=== PATIENT | male | born 1980 | race Hispanic/Latino ===

== ENCOUNTER 2019-03-02 18:55 | Emergency (ER) | payer OTHER ==
[2019-03-02 19:21] LABS: Absolute Lymphocytes (CBC) 3.1 K/uL (0.7-4.9); Basophils % 0.4 % (0-1.3); Hematocrit 44.4 % (39.6-49.0); Lymphocytes % 31.3 % (15.3-44.8); MPV 9.9 fL (7.6-11.3); RBC Red Blood Cell Count 5.18 M/uL (4.33-5.43)
[2019-03-02 19:25] LABS: Protime INR 1.15
--- NOTE | 2019-03-02 19:46 | ER ---
Nurse's Notes [facility] Name: Valerio Jeffers III Age: 38 yrs Sex: Male : 1980 Arrival Date: 03/02/2019 Time: 18:59 Bed 5 Private MD: Diagnosis: Epilepsy and recurrent seizures Presentation: 03/02 18:59 Presenting complaint: Was standing by car and fell to the ground, witness seizure with hb jerking movements and foaming at the mouth that lasted approx 5-7 minutes. Hx of seizures, does not take any medicines. BP 137/79, HR 130-160, SPO2 99% on NRB, BGL 131, 18g left AC. Transition of care: patient was not received from another setting of care. Onset of symptoms was March 02, 2019. Risk Assessment: Do you want to hurt yourself or someone else? Patient reports no desire to harm self or others. 18:59 Method Of Arrival: EMS: [facility] hb 18:59 Acuity: DARCI 3 hb 19:49 Initial Sepsis Screen: Does the patient meet any 2 criteria? No. Patient's initial ak1 sepsis screen is negative. Does the patient have a suspected source of infection? No. Patient's initial sepsis screen is negative. Care prior to arrival: None. Triage Assessment: 19:49 General: Appears in no apparent distress. ak1 19:49 General: Behavior is cooperative. ak1 Historical: - Allergies: 19:02 No Known Allergies; sv - PMHx: 19:02 Seizures; sv - PSHx: 19:02 None; sv - Immunization history:: Adult Immunizations unknown. - Social history:: Smoking status: unknown. - Ebola Screening: : No symptoms or risks identified at this time. Screenin:41 Abuse screen: Denies threats or abuse. Denies injuries from another. Nutritional ak1 screening: No deficits noted. Tuberculosis screening: No symptoms or risk factors identified. Fall Risk None identified. Assessment: 19:41 General: Appears in no apparent distress. Behavior is calm, cooperative. Pain: Denies ak1 pain. Neuro: Level of Consciousness is awake, alert, obeys commands, Oriented to person, place, time, situation, Appropriate for age pt A\T\OX4 requesting to go home, provider notified. . Neuro: Radiologic Technology Instructor are equal bilaterally Moves all extremities. Speech is normal, Facial symmetry appears normal. Cardiovascular: No deficits noted. Respiratory: No deficits noted. GI: No signs and/or symptoms were reported involving the gastrointestinal system. : No signs and/or symptoms were reported regarding the genitourinary system. EENT: No signs and/or symptoms were reported regarding the EENT system. Derm: No signs and/or symptoms reported regarding the dermatologic system. Musculoskeletal: No signs and/or symptoms reported regarding the musculoskeletal system. 19:48 Reassessment: Patient appears in no apparent distress at this time. pt able to stand ak1 and ambulate prior to discharge. Vital Signs: 19:01 BP 138 / 78; Pulse 125; Resp 24; Temp 97.4; Pulse Ox 99% on R/A; Weight 77.11 kg; hb Height 5 ft. 10 in. (177.80 cm); Pain 0/10; 19:02 BP 109 / 75; Pulse 119; Resp 18; Pulse Ox 95% ; sv 19:41 BP 100 / 73; Pulse 94; Resp 14; Pulse Ox 96% on R/A; ak1 19:01 Body Mass Index 24.39 (77.11 kg, 177.80 cm) hb [place] Coma Score: 19:49 Eye Response: spontaneous(4). Verbal Response: oriented(5). Motor Response: obeys ak1 commands(6). Total: 15. ED Course: 18:59 Patient arrived in ED. hb 19:00 Initial lab(s) drawn, by me, sent to lab. Maintain EMS IV. Dressing intact. Good blood sv return noted. Site clean \T\ dry. Gauge \T\ site: 18G L AC. 19:01 Triage completed. hb 19:01 Roland Greer NP is PHCP. pm1 19:01 Omar Vizcaino MD is Attending Physician. pm1 19:01 Arm band placed on. hb 19:29 Eileen Larose is Primary Nurse. cc3 19:41 No provider procedures requiring assistance completed. ak1 19:41 Patient has correct armband on for positive identification. ak1 19:48 IV discontinued, intact, bleeding controlled, No redness/swelling at site. Pressure ak1 dressing applied. 19:48 Seizure precautions initiated. ak1 Administered Medications: No medications were administered Point of Care Testing: Blood Glucose: 19:00 Blood Glucose: 140 mg/dL; sv Ranges: Outcome: 19:44 Discharge ordered by MD. pm1 19:49 Discharged to home ambulatory, pt stated he was going to call a cab to take him back ak1 home. 19:49 Condition: improved 19:49 Discharge instructions given to patient, Instructed on discharge instructions, follow up and referral plans. Demonstrated understanding of instructions, follow-up care. 19:50 Patient left the ED. cc3 Signatures: Remedios Duckworth RN RN Barb Acevedo RN RN ak1 Roland Greer, HOSTEL PARENT HOSTEL PARENT pm1 Christiane Up RN RN Eileen Larose cc3
--- NOTE | 2019-03-02 19:46 | EDPHYS ---
Physician Documentation [facility] Name: Valerio Jeffers III Age: 38 yrs Sex: Male : 1980 Arrival Date: 03/02/2019 Time: 18:59 Bed 5 Private MD: ED Physician Oamr Vizcaino HPI: 03/02 19:35 This 38 yrs old Male presents to ER via EMS with complaints of Seizure. pm1 19:35 The patient presents after having a possible seizure episode. pm1 19:35 The patient presents after having a single isolated seizure, that lasted 5 minute(s), pm1 the episode(s) was witnessed, by a friend. Character of seizure(s): Motor activity: generalized, shaking all over, Incontinence: none, Apnea: the patient did not experience apnea, Circulation: the patient did not experience evidence of pulse disturbance. Seizure onset: just prior to arrival. Seizure Hx: Cause: drug use in the past, Seizure medications: none. Associated injury: The patient did not suffer any apparent associated injury. EMS care: none. Current symptoms: confusion. The patient has experienced similar episodes in the past, several times. The patient has not recently seen a physician. Historical: - Allergies: 19:02 No Known Allergies; sv - PMHx: 19:02 Seizures; sv - PSHx: 19:02 None; sv - Immunization history:: Adult Immunizations unknown. - Social history:: Smoking status: unknown. - Ebola Screening: : No symptoms or risks identified at this time. ROS: 19:35 Constitutional: Negative for fever, chills, and weight loss, Eyes: Negative for injury, pm1 pain, redness, and discharge, ENT: Negative for injury, pain, and discharge, Neck: Negative for injury, pain, and swelling, Cardiovascular: Negative for chest pain, palpitations, and edema, Respiratory: Negative for shortness of breath, cough, wheezing, and pleuritic chest pain, Abdomen/GI: Negative for abdominal pain, nausea, vomiting, diarrhea, and constipation, Back: Negative for injury and pain, : Negative for injury, bleeding, discharge, and swelling, MS/Extremity: Negative for injury and deformity, Skin: Negative for injury, rash, and discoloration. 19:35 Neuro: Positive for seizure activity. Exam: 19:35 Constitutional: This is a well developed, well nourished patient who is awake, alert, pm1 and in no acute distress. Head/Face: Normocephalic, atraumatic. Eyes: Pupils equal round and reactive to light, extra-ocular motions intact. Lids and lashes normal. Conjunctiva and sclera are non-icteric and not injected. Cornea within normal limits. Periorbital areas with no swelling, redness, or edema. ENT: Nares patent. No nasal discharge, no septal abnormalities noted. Tympanic membranes are normal and external auditory canals are clear. Oropharynx with no redness, swelling, or masses, exudates, or evidence of obstruction, uvula midline. Mucous membranes moist. Neck: Trachea midline, no thyromegaly or masses palpated, and no cervical lymphadenopathy. Supple, full range of motion without nuchal rigidity, or vertebral point tenderness. No Meningismus. Chest/axilla: Normal chest wall appearance and motion. Nontender with no deformity. No lesions are appreciated. Cardiovascular: Regular rate and rhythm with a normal S1 and S2. No gallops, murmurs, or rubs. Normal PMI, no JVD. No pulse deficits. Respiratory: Lungs have equal breath sounds bilaterally, clear to auscultation and percussion. No rales, rhonchi or wheezes noted. No increased work of breathing, no retractions or nasal flaring. Abdomen/GI: Soft, non-tender, with normal bowel sounds. No distension or tympany. No guarding or rebound. No evidence of tenderness throughout. Back: No spinal tenderness. No costovertebral tenderness. Full range of motion. Skin: Warm, dry with normal turgor. Normal color with no rashes, no lesions, and no evidence of cellulitis. MS/ Extremity: Pulses equal, no cyanosis. Neurovascular intact. Full, normal range of motion. 19:35 Neuro: Orientation: to person, Motor: is normal, moves all fours. Vital Signs: 19:01 BP 138 / 78; Pulse 125; Resp 24; Temp 97.4; Pulse Ox 99% on R/A; Weight 77.11 kg; hb Height 5 ft. 10 in. (177.80 cm); Pain 0/10; 19:02 BP 109 / 75; Pulse 119; Resp 18; Pulse Ox 95% ; sv 19:41 BP 100 / 73; Pulse 94; Resp 14; Pulse Ox 96% on R/A; ak1 19:01 Body Mass Index 24.39 (77.11 kg, 177.80 cm) hb [place] Coma Score: 19:49 Eye Response: spontaneous(4). Verbal Response: oriented(5). Motor Response: obeys ak1 commands(6). Total: 15. MDM: 19:03 Patient medically screened. pm1 19:40 Refusal of service: The patient/guardian displays adequate decision making capability pm1 and despite a detailed discussion of alternatives, benefits, risks, and consequences refuses: CT Scan, all lab tests, Patient does not want a work up for his seizures. History of seizures. History of drug abuse. Patient just wants a ride home. 19:49 Data reviewed: vital signs. Data interpreted: Pulse oximetry: on room air is 96 %. pm1 Interpretation: normal. 03/02 19:00 Order name: Acetaminophen 03/02 19:00 Order name: Basic Metabolic Panel sv 03/02 19:00 Order name: CBC with Diff; Complete Time: 19:48 sv 03/02 19:00 Order name: ETOH Level; Complete Time: 19:37 sv 03/02 19:00 Order name: Hepatic Function sv 03/02 19:00 Order name: PT-INR; Complete Time: 19:48 sv 03/02 19:00 Order name: Ptt, Activated; Complete Time: 19:48 sv 03/02 19:00 Order name: Salicylate; Complete Time: 19:49 sv 03/02 19:00 Order name: EKG; Complete Time: 19:01 sv 03/02 19:00 Order name: EKG - Nurse/Tech; Complete Time: 19:20 sv 03/02 19:00 Order name: IV Saline Lock; Complete Time: 19:20 sv 03/02 19:00 Order name: Labs collected and sent; Complete Time: 19:20 sv Administered Medications: No medications were administered Point of Care Testing: Blood Glucose: 19:00 Blood Glucose: 140 mg/dL; sv Ranges: Critical Glucose Levels:Adult <50 mg/dl or >400 mg/dl <40 mg/dl or >180 mg/dl Disposition: 03/02/19 19:44 Discharged to Home. Impression: Epilepsy and recurrent seizures. - Condition is Stable. - Discharge Instructions: Seizure, Adult, [id number]. - Medication Reconciliation Form, Thank You Letter, Antibiotic Education, Prescription Opioid Use form. - Follow up: Emergency Department; When: As needed; Reason: Worsening of condition. Follow up: Private Physician; When: 2 - 3 days; Reason: Recheck today's complaints, Continuance of care, Re-evaluation by your physician. - Problem is new. - Symptoms have improved. Addendum: 03/05/2019 09:06 Co-signature as Attending Physician, Omar Vizcaino MD I agree with the assessment and k dr plan of care. Signatures: Dispatcher [employer] EDPR Remedios Duckworth, RN RN Omar Dickson MD MD [facility] [address] Barb Acevedo RN RN ak1 Roland Greer, NATHAN ATTENDING PSYCHIATRIST pm1 Eileen Larose cc3 Corrections: (The following items were deleted from the chart) 03/02 19:45 19:25 Head Brain Wo Cont+CT.RAD.BRZ ordered. [facility] 19:50 19:44 03/02/2019 19:44 Discharged to Home. Impression: Epilepsy and recurrent seizures. cc3 Condition is Stable. Forms are Medication Reconciliation Form, Thank You Letter, Antibiotic Education, Prescription Opioid Use. Follow up: Emergency Department; When: As needed; Reason: Worsening of condition. Follow up: Private Physician; When: 2 - 3 days; Reason: Recheck today's complaints, Continuance of care, Re-evaluation by your physician. Problem is new. Symptoms have improved. pm1
[2019-03-02 19:49] LABS: ALT/SGPT 46 U/L (12-78); AST/SGOT 22 U/L (15-37); Albumin 4.1 g/dL (3.4-5.0); Alkaline Phosphatase 86 U/L (45-117); BUN Blood Urea Nitrogen 15 mg/dL (7-18); Bicarbonate 26 mmol/L (21-32); Bilirubin Direct 0.2 mg/dL (0-0.2); Bilirubin Total 0.9 mg/dL (0.2-1.0); Glucose Level 138 mg/dL (74-106); Potassium 3.2 mmol/L (3.5-5.1); Sodium Level 139 mmol/L (136-145)
[2019-03-02 21:29] VITALS: TEMP 97.4
[2019-03-02 21:32] VITALS: BP 100/73; O2SAT 96
--- NOTE | 2019-03-03 14:15 | EKG ---
Test Date: 2019-03-02 Test Time: 19:06:45 Tip Stretcher: CODY MEASUREMENT RESULTS: Intervals: Rate: 120 DE: 142 QRSD: 78 QT: 338 QTc: 477 [place]: P: 49 DE: 142 QRS: 100 T: 12 INTERPRETIVE STATEMENTS: Sinus tachycardia Rightward axis Borderline ECG Compared to ECG 06/09/2016 15:59:33 Right-axis deviation now present Sinus rhythm no longer present Electronically Signed On 03-03-19 14:13:33 CDT by Kiran Galicia
== END 2019-03-02 19:50 | disposition home or self-care (01) ==
LOC: ER 18:55
DX: G40.802 Other epilepsy, not intractable, without status epilepticus (principal)
CPT/HCPCS: 36415; 80048; 80076; 80320; 80329; 82962; 85025; 85610; 85730; 93005; 99283

== ENCOUNTER 2024-04-05 01:26 | Emergency (ER) | payer OTHER ==
--- OUTSIDE RECORDS SUMMARY | 2024-04-05 01:29 | XMS REPORT | Continuity of Care Document ---
Author Name Unknown Address [address] [place] [address] [address] th[address] Address [address] [place] [address] 1 [address] [place] [address] Care Team Providers Care Line Assembly Utility Worker Name Role Phone CONNOR JOYA Attending Clinician Unavailab le Encounters Start Date/Time End Date/Time Encounter Type Admission Type Attending Clinicians Care Facility Care Department Encounter ID Source 2022-04-01 22:12:51 Emergency [facility] [id number] [facility] Fire Depart ent 2023-10-26 18:55:00 2023-10-26 20:45:00 Emergency ER CONNOR JOYA [facility] [id number] [facility]
--- NOTE | 2024-04-05 01:44 | EDPHYS ---
Physician Documentation [facility] Name: Valerio Jeffers III Age: 43 yrs Sex: Male : 1980 Arrival Date: 04/05/2024 Time: 01: Bed 6 Private MD: ED Physician Juan M Veliz HPI: 04/05 01:42 This 43 yrs old Male presents to ER via Unassigned with complaints of Leg Pain.sp4 06:50 Patient presents with complaint of bilateral leg cramps. Patient states he was walking sp4 long time outside and is here because he is feeling tired. He also complains of bilateral leg cramping. Historical: - Allergies: :42 No Known Allergies; jb4 - PMHx: :42 Seizures; jb4 - PSHx: 01:42 None; jb4 - Immunization history:: Adult Immunizations up to date. - Infectious Disease History:: Denies. - Social history:: Smoking status: Patient denies any tobacco usage or history of. Patient/guardian denies using alcohol, street drugs. - Family history:: not pertinent. ROS: 06:50 Constitutional: Negative for fever, chills, and weight loss, positive for bilateral leg sp4 cramps 06:50 All other systems are negative, Exam: 06:50 Constitutional: This is a well developed, well nourished patient who is awake, alert, sp4 and in no acute distress. Head/Face: Normocephalic, atraumatic. Eyes: Pupils equal round and reactive to light, extra-ocular motions intact. Lids and lashes normal. Conjunctiva and sclera are not injected. Cornea within normal limits. Periorbital areas with no swelling, redness, or edema. ENT: Nares patent. No nasal discharge, no septal abnormalities noted. Tympanic membranes are normal and external auditory canals are clear. Oropharynx with no redness, swelling, or masses, exudates, or evidence of obstruction, uvula midline. Mucous membranes moist. Neck: Trachea midline, no thyromegaly or masses palpated, and no cervical lymphadenopathy. Supple, full range of motion without nuchal rigidity, or vertebral point tenderness. Chest/axilla: Normal chest wall appearance and motion. Nontender with no deformity. No lesions are appreciated. Cardiovascular: Regular rate and rhythm with a normal S1 and S2. No gallops, murmurs, or rubs. Normal PMI, no JVD. No pulse deficits. Respiratory: Lungs have equal breath sounds bilaterally, clear to auscultation and percussion. No rales, rhonchi or wheezes noted. No increased work of breathing, no retractions or nasal flaring. Abdomen/GI: Soft, with normal bowel sounds. No distension or tympany. No guarding or rebound. No evidence of tenderness throughout. Back: No spinal tenderness. No costovertebral tenderness. Skin: Warm, dry with normal turgor. Normal color with no rashes, no lesions, and no evidence of cellulitis. MS/ Extremity: Pulses equal, no cyanosis. Neurovascular intact. Full, normal range of motion. Mild bilateral ankle edema. Otherwise normal exam. Neuro: Awake and alert, GCS 15, oriented to person, place, time, and situation. Cranial nerves II-XII grossly intact. Motor strength 5/5 in all extremities. Sensory grossly intact. Psych: Awake, alert, with orientation to person, place and time. Behavior, mood, and affect are within normal limits Vital Signs: 01:39 BP 135 / 71; Pulse 72; Resp 16; Temp 97.5(O); Pulse Ox 100% on R/A; Weight 68.04 kg jb4 (R); Height 5 ft. 7 in. ; Pain 9/10; 01:55 BP 138 / 84; Pulse 73; Resp 18; Temp 98; Pulse Ox 100% on R/A; Weight 68.04 kg; Height kj2 5 ft. 8 in. ; Pain 8/10; 01:55 Body Mass Index 22.81 (68.04 kg, 172.72 cm) kj2 01:39 Pain Scale: Adult jb4 01:55 Pain Scale: Adult kj2 [place] Coma Score: 06:50 Eye Response: spontaneous(4). Motor Response: obeys commands(6). Verbal Response: sp4 oriented(5). Total: 15. MDM: 01:43 Medical Screening Exam initiated sp4 06:51 Differential diagnosis: closed fracture, contusion, abrasion, tendonitis, Fatigue. Data sp4 reviewed: vital signs, nurses notes. ED course: Patient based on examination does not have any signs of emergent medical condition. Stable for discharge from the ER.. Administered Medications: No medications were administered Disposition Summary: 04/05/24 01:43 Discharge Ordered Notes: Location: Home sp4 Problem: new sp4 Symptoms: have improved sp4 Condition: Stable sp4 Diagnosis - Bilateral leg cramps sp4 Followup: sp4 - With: Private Physician - When: As needed - Reason: Discharge Instructions: - Discharge Summary Sheet sp4 - Leg Cramps sp4 Forms: - Patient Portal Instructions sp4 Signatures: Denzel Wynne RN RN jb4 Juan M Veliz MD MD sp4
--- NOTE | 2024-04-05 01:44 | ER ---
Nurse's Notes [facility] Name: Valerio Jeffers III Age: 43 yrs Sex: Male : 1980 Arrival Date: 04/05/2024 Time: 01:26 Bed 6 Private MD: Diagnosis: Bilateral leg cramps Presentation: 04/05 01:39 Chief complaint: Patient states: My legs have been hurting for the past 2 days and it jb4 hurts to walk. I walked here [place]. Coronavirus screen: At this time, the client does not indicate any symptoms associated with coronavirus-19. Ebola Screen: No symptoms or risks identified at this time. Initial Sepsis Screen: Does the patient meet any 2 criteria? No. Patient's initial sepsis screen is negative. Does the patient have a suspected source of infection? No. Patient's initial sepsis screen is negative. Risk Assessment: Do you want to hurt yourself or someone else? Patient reports no desire to harm self or others. Onset of symptoms was April 03, 2024. Transition of care: patient was not received from another setting of care. 01:39 Method Of Arrival: Ambulatory jb4 01:39 Acuity: DARCI 4 jb4 Historical: - Allergies: 01:42 No Known Allergies; jb4 - PMHx: 01:42 Seizures; jb4 - PSHx: 01:42 None; jb4 - Immunization history:: Adult Immunizations up to date. - Infectious Disease History:: Denies. - Social history:: Smoking status: Patient denies any tobacco usage or history of. Patient/guardian denies using alcohol, street drugs. - Family history:: not pertinent. Screenin:45 [facility] ED Fall Risk Assessment (Adult) History of falling in the last 3 months, kj2 including since admission No falls in past 3 months (0 pts) Confusion or Disorientation No (0 pts) Intoxicated or Sedated No (0 pts) Impaired Gait Yes (1 pt) Mobility Assist Device Used No (0 pt) Altered Elimination No (0 pt) Score/Fall Risk Level 0 - 2 = Low Risk Maintained a safe environment, Hourly rounding (assess needs \T\ fall precautionary measures) done. Abuse screen: Denies threats or abuse. Denies injuries from another. Nutritional screening: No deficits noted. Tuberculosis screening: No symptoms or risk factors identified. Assessment: 01:57 General: Appears in no apparent distress. uncomfortable, Behavior is calm, cooperative. kj2 Pain: Complains of pain in BILAT LEGS Pain currently is 8 out of 10 on a pain scale. Neuro: Level of Consciousness is awake, alert, obeys commands, Oriented to person, place, time, situation. Cardiovascular: Patient's skin is warm and dry. Respiratory: Airway is patent Respiratory effort is even, unlabored. GI: No signs and/or symptoms were reported involving the gastrointestinal system. : No signs and/or symptoms were reported regarding the genitourinary system. Vital Signs: 01:39 BP 135 / 71; Pulse 72; Resp 16; Temp 97.5(O); Pulse Ox 100% on R/A; Weight 68.04 kg jb4 (R); Height 5 ft. 7 in. ; Pain 9/10; 01:55 BP 138 / 84; Pulse 73; Resp 18; Temp 98; Pulse Ox 100% on R/A; Weight 68.04 kg; Height kj2 5 ft. 8 in. ; Pain 8/10; 01:55 Body Mass Index 22.81 (68.04 kg, 172.72 cm) kj2 01:39 Pain Scale: Adult jb4 01:55 Pain Scale: Adult kj2 [place] Coma Score: 06:50 Eye Response: spontaneous(4). Motor Response: obeys commands(6). Verbal Response: sp4 oriented(5). Total: 15. ED Course: 01:28 Patient arrived in ED. jj6 01:42 Juan M Veliz MD is Attending Physician. sp4 01:42 Triage completed. jb4 01:42 Arm band placed on right wrist. jb4 01:55 Vijaya Pisano, DONNA is Primary Nurse. kj2 02:00 Patient has correct armband on for positive identification. Bed in low position. Call kj2 light in reach. Provided Education on: CALL LIGHT. 02:01 No provider procedures requiring assistance completed. kj2 02:02 Patient did not have IV access during this emergency room visit. kj2 Administered Medications: No medications were administered Medication: 01:59 VIS not applicable for this client. kj2 Outcome: 01:43 Discharge ordered by . sp4 02:01 Discharged to home ambulatory, kj2 02:01 Condition: stable 02:01 Discharge instructions given to patient, Instructed on discharge instructions, follow up and referral plans. Demonstrated understanding of instructions, follow-up care, 02:07 Patient left the ED. kj2 Signatures: Denzel Wynne, RN RN jb4 Nena Lemonj6 Juan M Veliz MD MD sp4 Vijaya Pisano RN RN kj2
[2024-04-05 12:53] VITALS: O2SAT 100
[2024-04-05 12:55] VITALS: BP 138/84; TEMP 98
== END 2024-04-05 02:07 | disposition home or self-care (01) ==
LOC: ER 01:26
DX: R25.2 Cramp and spasm (principal)
CPT/HCPCS: 99283

== ENCOUNTER 2024-09-20 12:01 | Emergency (ER) | payer OTHER ==
[2024-09-20 12:42] LABS: PT Prothrombin Time 12.7 SECONDS (10-13.0); PTT, Activated Partial Thromb 29.9 SECONDS (27.2-37.4); Protime INR 1.12
[2024-09-20 12:44] LABS: Absolute Eosinophils 0.1 K/uL (0-0.5); Absolute Lymphocytes (CBC) 2.3 K/uL (0.7-4.9); Absolute Monocytes 0.7 K/uL (0.1-1.3); Absolute Neutrophil 5.8 K/uL (1.8-8.0); Basophils % 0.3 % (0-1.3); Eosinophils % 0.9 % (0-4.4); Hematocrit 36.9 % (39.6-49.0); Hemoglobin 12.8 g/dL (13.6-17.9); Lymphocytes % 25.5 % (15.3-44.8); MCH 29.2 pg (27.0-35.0); MCHC 34.8 g/dL (32.0-36.0); MCV 83.9 fL (80-100); MPV 9.2 fL (7.6-11.3); Monocytes % 7.9 % (3.3-12.3); Neutrophils % 65.4 % (41.7-73.7); Nucleated Red Blood Cells % 0.1 % (0-0); Platelets 315 thou/uL (152-406); Red Cell Distribution Width 14.2 % (12.1-15.2)
[2024-09-20] MEDS ORDERED: NA CHLORIDE 0.9% 1,000 ML ONE (12:44)
[2024-09-20 13:05] LABS: ALT/SGPT 34 U/L (16-61); AST/SGOT 23 U/L (15-37); Albumin/Globulin Ratio 0.9 (1.1-1.8); Alkaline Phosphatase 65 U/L (45-117); Anion Gap 10.1 mEq/L (5.0-15.0); BUN Blood Urea Nitrogen 23 mg/dL (7-18); Bicarbonate 26 mEq/L (21-32); Bilirubin Direct 0.2 mg/dL (0-0.2); Bilirubin Indirect, Calculated 0.6 mg/dL (0.2-0.8); Bilirubin Total 0.8 mg/dL (0.2-1.0); Globulin 3.3 g/dL (2.3-3.5); Glomerular Filtration Rate 86 ml/min (=/>90); Glucose Level 129 mg/dL (74-106); Potassium 3.1 mEq/L (3.5-5.1); Protein, Total 6.3 g/dL (6.4-8.2); Sodium Level 141 mEq/L (136-145)
[2024-09-20 16:10] LABS: Barbiturates NEGATIVE (NEGATIVE); Benzodiazepines NEGATIVE (NEGATIVE); Cocaine NEGATIVE (NEGATIVE); METHAMPHETAM NEGATIVE (NEGATIVE); Methadone NEGATIVE (NEGATIVE); Opiates NEGATIVE (NEGATIVE); Phencyclidine NEGATIVE (NEGATIVE); THC Cannibis NEGATIVE (NEGATIVE)
[2024-09-20] MEDS ORDERED: POTASSIUM CL SA 10 MEQ TAB PO ONE (16:10)
[2024-09-20] MEDS ORDERED: levETIRAcetam 500 MG TAB ONE (16:10)
--- NOTE | 2024-09-20 16:38 | EDPHYS ---
Physician Documentation [facility] Name: Valerio Jeffers III Age: 44 yrs Sex: Male : 1980 Arrival Date: 09/20/2024 Time: 12:01 Bed 9 Private MD: ED Physician Cristian Boyd HPI: 09/20 13:06 This 44 yrs old Male presents to ER via EMS with complaints of Seizure. ms3 13:06 44-year-old male with past medical history of seizures presents to the emergency ms3 department via [facility] with [facility] [employer]. EMS states [place] the park [place] and when approached by police began having seizure-like activity. Patient admitted to using K2 and taking some pills today. Patient denies pain at this time.. Historical: - Allergies: 12:45 No Known Allergies; aa5 - PMHx: 12:11 Seizures; aa5 - Immunization history:: Adult Immunizations unknown. - Infectious Disease History:: Denies. - Social history:: Smoking status: . ROS: 13:06 Constitutional: Negative for fever, and chills. Cardiovascular: Negative for chest ms3 pain, and palpitations. Respiratory: Negative for shortness of breath, cough, wheezing, and pleuritic chest pain, Abdomen/GI: Negative for abdominal pain, nausea, vomiting, diarrhea, and constipation, MS/Extremity: Negative for injury and deformity, 13:06 Neuro: Positive for seizure activity, Exam: 13:06 Constitutional: This is a well developed, well nourished patient who is awake, alert, ms3 and in no acute distress. Chest/axilla: Normal chest wall appearance and motion. Nontender with no deformity. Cardiovascular: Regular rate and rhythm with a normal S1 and S2. No gallops, murmurs, or rubs. Normal PMI, no JVD. No pulse deficits. Respiratory: Lungs have equal breath sounds bilaterally, clear to auscultation and percussion. No rales, rhonchi or wheezes noted. No increased work of breathing, no retractions or nasal flaring. Abdomen/GI: Soft, non-tender, with normal bowel sounds. No distension or tympany. No guarding or rebound. No evidence of tenderness throughout. Skin: Warm, dry with normal turgor. Normal color with no rashes, no lesions, and no evidence of cellulitis. 13:06 Neuro: Orientation: is normal, to person, place, time \T\ situation. Mentation: is normal, Memory: is normal, Cranial nerves: CN I not tested, CN II- XII are normal as tested, Cerebellar function: is grossly normal, Motor: is normal, 13:08 ECG was reviewed by the Attending Physician. ms3 Vital Signs: 12:11 BP 102 / 63; Resp 16 S; Temp 98.4(O); Pulse Ox 97% on R/A; aa5 13:30 BP 105 / 63; Pulse 71; Resp 18 S; Temp 98.4(O); Pulse Ox 97% on R/A; aa5 15:00 BP 106 / 70; Pulse 78; Resp 18 S; Pulse Ox 100% on R/A; aa5 16:17 BP 123 / 76; Pulse 71; Resp 16 S; Pulse Ox 100% on R/A; aa5 [place] Coma Score: 12:11 Eye Response: to voice(3). Motor Response: obeys commands(6). Verbal Response: aa5 oriented(5). Total: 14. 13:30 Eye Response: spontaneous(4). Motor Response: obeys commands(6). Verbal Response: aa5 oriented(5). Total: 15. 16:17 Eye Response: spontaneous(4). Motor Response: obeys commands(6). Verbal Response: aa5 oriented(5). Total: 15. MDM: 12:11 Medical Screening Exam initiated ms3 13:06 Differential diagnosis: cardiac arrhythmia, seizure, Drug abuse. ms3 21:45 Data reviewed: vital signs, nurses notes, lab test result(s), EKG, and as a result, I ms3 will discharge patient. I considered the following discharge prescriptions or medication management in the emergency department Medications were administered in the Emergency Department. See MAR. Independent interpretation of the following test(s) in the Emergency Department EKG: See my EKG interpretation above. Historians other than the Patient: EMS: [facility]. Counseling: I had a detailed discussion with the patient and/or guardian regarding the historical points, exam findings, and any diagnostic results supporting the discharge/admit diagnosis, lab results, the need for outpatient follow up, to return to the emergency department if symptoms worsen or persist or if there are any questions or concerns that arise at home. Special discussion: I discussed with the patient/guardian in detail that at this point there is no indication for admission to the hospital. It is understood, however, that if the symptoms persist or worsen the patient needs to return immediately for re-evaluation. ED course: On reevaluation patient is alert and oriented x 4, in no apparent distress, nontoxic-appearing, speaking full sentences. Patient given Keppra 1 g in the emergency department. Patient states he has appointment in 2 weeks with neurology. Patient has not been able to take his medication which he believes is levetiracetam. Patient to follow-up with neurology in 2 to 3 days. Patient understands and agrees with plan. All questions were answered. Return precautions discussed include worsening symptoms, or any other concerns. Discussed with patient he is not to drive, take a bath, or place himself in harm's way if a seizure were to occur until cleared by neurology.. 09/20 12:11 Order name: Acetaminophen; Complete Time: 14: ms3 09/20 12:11 Order name: BMP; Complete Time: 14: ms3 09/20 12:11 Order name: CBC with Diff; Complete Time: 14: ms3 09/20 12:11 Order name: Ethanol; Complete Time: 14: ms3 09/20 12:11 Order name: Hepatic Function; Complete Time: 14: ms3 09/20 12:11 Order name: Protime (+inr); Complete Time: 14: ms3 09/20 12:11 Order name: Ptt, Activated; Complete Time: 14: ms3 09/20 12:11 Order name: Salicylate; Complete Time: 14: ms3 09/20 12:11 Order name: Urine Drug Screen; Complete Time: 16:13 ms3 09/20 12:11 Order name: EKG - Nurse/Tech; Complete Time: 13:17 ms3 09/20 12:11 Order name: IV Saline Lock; Complete Time: 12: ms3 09/20 12:11 Order name: Labs collected and sent; Complete Time: 12:19 ms3 09/20 12:11 Order name: O2 Per Protocol; Complete Time: 12:19 ms3 09/20 12:11 Order name: O2 Sat Monitoring; Complete Time: 12:19 ms3 EC:08 Rate is 77 beats/min. Rhythm is regular. Left axis deviation noted. ID interval is ms3 normal. QRS interval is normal. Clinical impression: Normal ECG. Interpreted by me. Reviewed by me. Administered Medications: 13:00 Drug: NS 0.9% IV 1000 ml IV at 1000 ml once; to be given as a bolus over 60 minutes aa5 Route: IV; Rate: 1000 ml; Site: right antecubital; 14:00 Follow up: IV Status: Completed infusion; IV Intake: 1000ml aa5 16:15 Drug: Potassium Chloride PO Liquid 40 mEq PO once Route: PO; aa5 17:00 Follow up: Response: No adverse reaction aa5 16:15 Drug: Keppra PO 1000 mg PO once Route: PO; aa5 17:00 Follow up: Response: No adverse reaction aa5 Disposition Summary: 09/20/24 16:37 Discharge Ordered Notes: Location: Home ms3 Condition: Stable ms3 Diagnosis - Other seizures ms3 Followup: ms3 - With: Everton Breaux MD - When: 2 - 3 days - Reason: Re-evaluation by your physician Discharge Instructions: - Discharge Summary Sheet ms3 - Seizure, Adult ms3 Forms: - Medication Reconciliation Form ms3 - Antibiotic Education ms3 - Prescription Opioid Use ms3 - Patient Portal Instructions ms3 - Leadership Thank You Letter ms3 Prescriptions: - Keppra 500 mg Oral Tablet - take 1 tablet ORAL route every 12 hours; 20 tablet; Refills: 0, Product ms3 Selection Permitted Signatures: Dispatcher [employer] EDMS Delores Rose RN RN aa5 Cristian Boyd DO DO ms3 Corrections: (The following items were deleted from the chart) 12:12 12:12 ACETAMINOPHEN+C.LAB.BRZ ordered. EDMS EDMS 12:12 12:12 BASIC METABOLIC PANEL+C.LAB.BRZ ordered. EDMS EDMS 12:12 12:12 CBC+H.LAB.BRZ ordered. EDMS EDMS 12:12 12:12 ETHANOL+C.LAB.BRZ ordered. EDMS EDMS 12:12 12:12 HEPATIC FUNCTION+C.LAB.BRZ ordered. EDMS EDMS 12:12 12:12 PROTIME (+INR)+COAG.LAB.BRZ ordered. EDMS EDMS 12:12 12:12 PTT, ACTIVATED+COAG.LAB.BRZ ordered. EDMS EDMS 12: 12:12 SALICYLATE+C.LAB.BRZ ordered. EDMS EDMS 12:12 12:12 URINE DRUG SCREEN+UC.LAB.BRZ ordered. EDMS EDMS 16:20 12:11 Suicide Screening ([place]) ordered. ms3 aa5
--- NOTE | 2024-09-20 16:38 | ER ---
Nurse's Notes [facility] Name: Valerio Jeffers III Age: 44 yrs Sex: Male : 1980 Arrival Date: 09/20/2024 Time: 12:01 Bed 9 Private MD: Diagnosis: Other seizures Presentation: 09/20 12:11 Chief complaint: EMS states: "Pt was found digging in the park and when he was aa5 approached by PD pt had seizure like activity and became unresponsive", pt was given Narcan by PD. EMS reports pt was confused but responsive upon scene arrival. EMS reports pt confessed to "smoking K2". 12:11 Coronavirus screen: At this time, the client does not indicate any symptoms associated aa5 with coronavirus-19. Ebola Screen: Patient denies travel to an Ebola-affected area in the 21 days before illness onset. Initial Sepsis Screen: Does the patient meet any 2 criteria? No. Patient's initial sepsis screen is negative. Does the patient have a suspected source of infection? No. Patient's initial sepsis screen is negative. Risk Assessment: Do you want to hurt yourself or someone else? Patient reports no desire to harm self or others. Onset of symptoms was September 20, 2024. Care prior to arrival: Medication(s) given: Normal saline infusion, 1000 mL, zofran 4 mg, IV initiated. 18 GA, in the right antecubital area, Glucose check: 75. 12:11 Method Of Arrival: EMS: [facility] aa5 12:11 Acuity: DARCI 2 aa5 Historical: - Allergies: 12:45 No Known Allergies; aa5 - PMHx: 12:11 Seizures; aa5 - Immunization history:: Adult Immunizations unknown. - Infectious Disease History:: Denies. - Social history:: Smoking status: . Screenin:11 [facility] ED Fall Risk Assessment (Adult) History of falling in the last 3 months, aa5 including since admission Yes- physiologic fall (2 pts) Confusion or Disorientation Yes (5 pts) Intoxicated or Sedated No (0 pts) Impaired Gait No (0 pts) Mobility Assist Device Used No (0 pt) Altered Elimination No (0 pt) Score/Fall Risk Level 3 or more points = High Risk Oriented to surroundings, Maintained a safe environment, Educated pt \\T\\ family on fall prevention, incl call for assistance when getting out of bed, Assessed \\T\\ reinforced patient's understanding of fall precautions. Abuse screen: Denies threats or abuse. Nutritional screening: No deficits noted. Tuberculosis screening: No symptoms or risk factors identified. Assessment: 12:11 Reassessment: Pt accompanied by [facility] [employer] Attendant, reports pt is under their aa5 custody. . 12:11 General: Appears comfortable, Behavior is calm, cooperative. Pain: Denies pain. Neuro: aa5 Level of Consciousness is alert, obeys commands, with eyes closed, appears mildly drowsy. Oriented to person, place, time, situation, Appropriate for age Family Helper are equal bilaterally Moves all extremities. Speech is normal, Facial symmetry appears normal. Cardiovascular: Heart tones S1 S2 present Rhythm is regular. Respiratory: Airway is patent Respiratory effort is even, unlabored, Respiratory pattern is regular, symmetrical. GI: Abdomen is round non-distended, Bowel sounds present X 4 quads. Abd is soft and non tender X 4 quads. : No signs and/or symptoms were reported regarding the genitourinary system. EENT: No signs and/or symptoms were reported regarding the EENT system. Derm: Skin is pink, warm \\T\\ dry. Musculoskeletal: Range of motion: intact in all extremities. 13:30 Reassessment: Patient is alert, oriented x 3, equal unlabored respirations, skin aa5 warm/dry/pink. 13:30 Reassessment: [facility] [employer] remains at bedside. . aa5 15:00 Reassessment: Patient is alert, oriented x 3, equal unlabored respirations, skin aa5 warm/dry/pink. 16:00 Reassessment: Pt ambulatory to restroom with steady gait, awaiting d/c paperwork to be aa5 completed by . . 16:50 Reassessment: To bedside to d/c pt, pt c/o "not feeling good, I have a headache, and I aa5 feel dizzy", was notified. states ok to d/c pt to law enforcement, pt requesting to speak to [facility] [employer] officer "alone". . Vital Signs: 12:11 BP 102 / 63; Resp 16 S; Temp 98.4(O); Pulse Ox 97% on R/A; aa5 13:30 BP 105 / 63; Pulse 71; Resp 18 S; Temp 98.4(O); Pulse Ox 97% on R/A; aa5 15:00 BP 106 / 70; Pulse 78; Resp 18 S; Pulse Ox 100% on R/A; aa5 16:17 BP 123 / 76; Pulse 71; Resp 16 S; Pulse Ox 100% on R/A; aa5 [place] Coma Score: 12:11 Eye Response: to voice(3). Motor Response: obeys commands(6). Verbal Response: aa5 oriented(5). Total: 14. 13:30 Eye Response: spontaneous(4). Motor Response: obeys commands(6). Verbal Response: aa5 oriented(5). Total: 15. 16:17 Eye Response: spontaneous(4). Motor Response: obeys commands(6). Verbal Response: aa5 oriented(5). Total: 15. ED Course: 12:11 Patient arrived in ED. ms3 12:11 Cristian Boyd DO is Attending Physician. ms3 12:11 Arm band placed on Patient placed in an exam room, on a stretcher. aa5 12:11 Patient has correct armband on for positive identification. Bed in low position. Call aa5 light in reach. Side rails up X 1. Pulse ox on. NIBP on. 12:11 Seizure precautions initiated. aa5 12:19 Delores Rose, RN is Primary Nurse. aa5 12:26 Acetaminophen Sent. cc6 12:26 BMP Sent. cc6 12:26 CBC with Diff Sent. cc6 12:26 Ethanol Sent. cc6 12:26 Hepatic Function Sent. cc6 12:26 Protime (+inr) Sent. cc6 12:26 Ptt, Activated Sent. cc6 12:26 Salicylate Sent. cc6 12:29 Triage completed. aa5 15:46 Urine Drug Screen Sent. kb4 15:46 Urine collected: clean catch specimen, cloudy. kb4 16:00 IV discontinued, intact, bleeding controlled, No redness/swelling at site. Pressure aa5 dressing applied. 16:00 No provider procedures requiring assistance completed. aa5 16:37 Everton Breaux MD is Referral Physician. ms3 Administered Medications: 13:00 Drug: NS 0.9% IV 1000 ml IV at 1000 ml once; to be given as a bolus over 60 minutes aa5 Route: IV; Rate: 1000 ml; Site: right antecubital; 14:00 Follow up: IV Status: Completed infusion; IV Intake: 1000ml aa5 16:15 Drug: Potassium Chloride PO Liquid 40 mEq PO once Route: PO; aa5 17:00 Follow up: Response: No adverse reaction aa5 16:15 Drug: Keppra PO 1000 mg PO once Route: PO; aa5 17:00 Follow up: Response: No adverse reaction aa5 Medication: 16:15 VIS not applicable for this client. aa5 Intake: 14:00 IV: 1000ml; Total: 1000ml. aa5 Outcome: 16:37 Discharge ordered by . ms3 17:00 Discharged to Law Enforcement, Francois MCGEE. aa5 17:00 Condition: improved 17:00 Discharge instructions given to patient, law enforcement Instructed on discharge instructions, follow up and referral plans. medication usage, Demonstrated understanding of instructions, follow-up care, medications, Prescriptions given X 1, 17:04 Patient left the ED. aa5 Signatures: Delores Rose RN RN aa5 Cristian Boyd DO DO ms3 Sangita Edwards cc6 Shayla Paula kb4 Corrections: (The following items were deleted from the chart) 12:30 12:11 Chief complaint: EMS states: "Pt was [place] the park and when he was aa5 approached by PD pt had seizure like activity and became unresponsive", pt was given Narcan by PD. EMS reports pt was confused but responsive upon scene arrival. aa5 17:04 16:00 Reassessment: Pt ambulatory to restroom, awaiting d/c paperwork to be completed aa5 by . . aa5 17:11 17:11 Patient left the ED. aa5 aa5
[2024-09-20 17:17] VITALS: TEMP 98.4
[2024-09-20 17:20] VITALS: O2SAT 100
[2024-09-20 17:22] VITALS: BP 123/76
--- NOTE | 2024-09-21 14:17 | EKG ---
Test Date: 2024-09-20 Test Time: 12:59:53 Aquatic Performer: SOPHIA MEASUREMENT RESULTS: Intervals: Rate: 77 NH: 142 QRSD: 78 QT: 392 QTc: 443 [place]: P: 56 NH: 142 QRS: 95 T: 44 INTERPRETIVE STATEMENTS: Normal sinus rhythm Normal ECG Compared to ECG 03/02/2019 19:06:45 Sinus tachycardia no longer present Right-axis deviation no longer present Electronically Signed On 09-21-24 14:13:33 CDT by Jeremiah Walker
== END 2024-09-20 17:11 | disposition home or self-care (01) ==
LOC: ER 12:01
DX: G40.89 Other seizures (principal)
CPT/HCPCS: 93005; 85025; 80048; 36415; 85610; 80076; 85730; 80307; 96360; 99284; 80143; 80179; 82077; J7030